=== PATIENT | female | born 1985 | race African-American/Black ===

== ENCOUNTER 2020-10-19 11:04 | Emergency (ER) | payer MEDICAID, OTHER ==
[2020-10-19 11:25] VITALS: BP 116/70
--- NOTE | 2020-10-19 11:59 | Event Note ---
ED Screening Note Date of service: 10/19/20 Time: 11:58 ED Screening Note: 35-year-old female patient presents to the emergency department with complaints of painful vaginal bleeding starting 2 days ago. Patient states the pain is localized to the left lower abdomen. Patient has never experienced vaginal bleeding with prior full-term pregnancies. Last menstrual cycle was in July. She was evaluated by her contracts intern yesterday and blood work was performed. She has not had an ultrasound. General: Awake, appropriately interactive, no acute distress. Neck: Supple. Full range of motion intact. Cardiovascular: Normal peripheral perfusion. Pulmonary: No respiratory distress. Patient is speaking normally without use of accessory muscles. Abdomen: Left lower quadrant tenderness. Skin: No apparent rashes or lesions. Neurological: No facial asymmetry. Speech is clear. Follows commands. Patient is alert and oriented. Musculoskeletal: Moves all four extremities spontaneously with normal range of motion. Psych: Cooperative. Appropriate mood and affect. I have greeted and performed a focused rapid initial assessment of this patient. A comprehensive ED assessment and evaluation of the patient, analysis of all test results, and completion of the medical decision-making process will be conducted by additional ED providers. This initial assessment/diagnostic orders/clinical plan/treatment(s) is/are subject to change based on patients health status, clinical progression and re-assessment. Further treatment and workup at subsequent clinical provider's discretion. Patient/guardian urged not to elope from the ED as their condition may be serious if not clinically assessed and managed.
[2020-10-19 12:58] LABS: Basophils # (Auto) 0.1 K/mm3 (0.0-0.1); Basophils % (Auto) 0.7 % (0.0-1.8); Eosinophils # (Auto) 0.1 K/mm3 (0.0-0.4); Eosinophils % (Auto) 1.1 % (0.0-4.3); Hemoglobin 13.6 gm/dl (10.1-14.3); Lymphocytes # (Auto) 1.6 K/mm3 (1.2-5.4); Lymphocytes % (Auto) 21.8 % (13.4-35.0); Mean Corpuscular HGB Conc 34 % (30-34); Mean Corpuscular Volume 92 fl (79-97); Monocytes # (Auto) 0.4 K/mm3 (0.0-0.8); Platelet Count 257 K/mm3 (140-440); Red Blood Count 4.33 M/mm3 (3.65-5.03); Red Cell Distribution Width 14.2 % (13.2-15.2)
--- NOTE | 2020-10-19 16:49 | Emergency Department Report ---
ED HPI - General Chief complaint: Vaginal Bleeding Stated complaint: VAG BLEED (PREG) Time Seen by Provider: 10/19/20 16:40 Source: patient Mode of arrival: Ambulatory Limitations: No Limitations - History of Present Illness Initial comments: 35-year-old female with no significant past history presents to the ER today with complaints of being and vaginal bleeding. Patient states that her vaginal bleeding started 2 days ago but got worse today. Patient states that she is currently about 6 weeks based on her last menstrual cycle which was August 10, and she also had an ultrasound about a week ago at her GOLD LAYER's office. She states that when she had ultrasound a week ago which showed a gestational sac but otherwise nothing else was seen. She states that she did see her GOLD LAYER yesterday, and she did mention the bleeding to her GOLD LAYER but she states that they did do blood work and he recommended that she go home and rest but she did not have a repeat ultrasound. She states that the bleeding got worse today with passage of clots and she has change about 5-6 pads today and so she came to the ER. She reports associated abdominal cramping mainly in the left lower quadrant. She reports urinary frequency but no other UTI symptoms. She is G3, P2 Ab0 Complaint: abdominal pain, vaginal bleeding, other (about 6 weeks ) -: days(s) (2) - Related Data Previous Rx's Medication Instructions Recorded Last Taken Type HYDROcodone/APAP 5-325 [[place] 1 each PO Q4HR PRN #12 tablet 10/19/20 Unknown Rx 5/325] Ibuprofen [Motrin] 600 mg PO Q8H PRN #30 tablet 10/19/20 Unknown Rx Allergies Allergy/AdvReac Type Severity Reaction Status Date / Time No Known Allergies Allergy Unverified 10/19/20 11:22 ED Review of Systems ROS: Stated complaint: VAG BLEED (PREG) Other details as noted in HPI Comment: All other systems reviewed and negative Constitutional: denies: chills, fever Eyes: denies: eye pain, eye discharge, vision change ENT: denies: ear pain, throat pain, dental pain, hearing loss, epistaxis, congestion Respiratory: denies: cough, orthopnea, shortness of breath, SOB with exertion, SOB at rest, wheezing Cardiovascular: denies: chest pain, palpitations, edema, syncope, paroxysmal nocturnal dyspnea Gastrointestinal: abdominal pain. denies: nausea, diarrhea, constipation, hematemesis, melena, hematochezia Genitourinary: frequency, other (Abnormal vaginal bleeding). denies: urgency, dysuria, discharge Musculoskeletal: denies: back pain, joint swelling, arthralgia, myalgia Skin: denies: rash, lesions, change in color, change in hair/nails, pruritus Neurological: denies: headache, weakness, numbness, paresthesias, confusion, abnormal gait, vertigo Psychiatric: denies: anxiety, depression, auditory hallucinations, visual hallucinations, homicidal thoughts, suicidal thoughts Hematological/Lymphatic: denies: easy bleeding, easy bruising, swollen glands ED Past Medical Hx - Past Medical History Previous Medical History?: No - Surgical History Past Surgical History?: No - Medications Home Medications: Home Medications Medication Instructions Recorded Confirmed Last Taken Type HYDROcodone/APAP 5-325 [[place] 1 each PO Q4HR PRN #12 tablet 10/19/20 Unknown Rx 5/325] Ibuprofen [Motrin] 600 mg PO Q8H PRN #30 tablet 10/19/20 Unknown Rx ED Physical Exam - General Limitations: No Limitations General appearance: alert, in no apparent distress, anxious - Head Head exam: Present: atraumatic, normocephalic, normal inspection - Eye Eye exam: Present: normal appearance, PERRL, EOMI Pupils: Present: normal accommodation - ENT ENT exam: Present: normal exam, mucous membranes moist - Neck Neck exam: Present: normal inspection, full ROM - Respiratory Respiratory exam: Present: normal lung sounds bilaterally. Absent: respiratory distress, wheezes, rales, rhonchi - Cardiovascular Cardiovascular Exam: Present: regular rate, normal rhythm, normal heart sounds - GI/Abdominal GI/Abdominal exam: Present: soft, tenderness (Mild left lower quadrant abdominal tenderness). Absent: distended, guarding, rebound, rigid - Neurological Exam Neurological exam: Present: alert, oriented X3, CN II-XII intact, normal gait - Psychiatric Psychiatric exam: Present: normal affect, normal mood - Skin Skin exam: Present: intact ED Course Vital Signs 10/19/20 11:23 Temperature 98.9 F Pulse Rate 68 Respiratory 17 Rate Blood Pressure 116/70 [Right] O2 Sat by Pulse 100 Oximetry ED Medical Decision Making - Lab Data Result diagrams: 10/19/20 12:27 10/19/20 20:06 - Radiology Data Radiology results: report reviewed Patient: JOSÉ MIGUEL ROSEN MR#: [id number] [birth year] : 1985 Acct:[id number] Age/Sex: 35 / F ADM Date: 10/19/20 Loc: ED Attending Dr: Ordering Physician: JOÃO STACY Date of Service: 10/19/20 Procedure(s): US OB transvaginal Accession Number(s): [id number] cc: JOÃO STACY OB ultrasound first trimester INDICATION: Ultrasound in physician's office showed an empty gestational sac, vaginal bleeding FINDINGS: There is an oval collection of fluid in the lower uterine segment no pole or yolk sac is seen within this. This could represent early gestational sac in the lower uterine segment. There is some thickening of the endometrium around the site. In the region of the right cornu there is a 3.5 x 2.4 x 2.9 cm irregular. Stru cture with a central cystic area that measures 1.3 cm. No pole or yolk sac is seen within the structure. This structure is hypovascular. There are several small fibroids identified within the uterus The right ovary measures 4.3 cm and the left ovary measures 3.9 cm. No adnexal masses are seen. IMPRESSION: 1. The hypervascular structure in the right cornu measuring up to 3.5 cm with a cystic central portion is not specific. It is possible this could represent a hypervascular fibroid in the cornu with a necrotic central portion. The possibility that this could represent a cornual ectopic is considered as well. 2. Oval collection of fluid in the lower uterine segment may represent an abnormal gestational sac and represent an in progress. IMPORTANT FINDING: Time of Communication ([place] ADMIN/CDT): 1750 Licensed Practitioner Receiving Report: Sherly 3. Close clinical follow-up is recommended. Follow-up ultrasound should be obtained as clinically warranted. Correlation with serial serum beta hCG levels is recommended. Signer Name: Abel Alberts MD Signed: 10/19/2020 6:57 PM Workstation Name: [id number] Transcribed By: Dictated By: Abel Alberts MD Electronically Authenticated By: Abel Alberts MD Signed Date/Time: 10/19/201856 DD/ 37 TD/TT: - Medical Decision Making Labs reviewed --CBC shows a normal white count and normal H&H; CMP normal; Quant 4340 OB US shows -- The hypervascular structure in the right cornu measuring up to 3.5 cm with a cystic central portion is not specific. It is possible this could represent a hypervascular fibroid in the cornu with a necrotic central portion. The possibility that this could represent a cornual ectopic is considered as well. 2. Oval collection of fluid in the lower uterine segment ma y represent an abnormal gestational sac and represent an in progress. 3. Close clinical follow-up is recommended. Follow-up ultrasound should be obtained as clinically warranted. Correlation with serial serum beta hCG levels is recommended. Patient currently resting comfortably on bed. She is not in any distress. She is not toxic or ill appearing. She reports mild intermittent lower abd cramping mainly left side but no worsening bleeding. Repeat Abd exam show soft abd with mild ttp LLQ but no guarding, rebound, rigidity or distension. Discussed lab/US results with patient and informed her that I will need to consult OBGYN for plan of action given results of US. 2008: Discussed case with Dr Ibrahim, chief deputy coroner OBGYN for [facility], she recommend initiating methotrexate 50mg/m2 and having patient f/u with her OB at [facility] tomorrow but she also recommend the patient return here to the ER in 4 days for repeat CBC and quant and then return on day 7 for repeat CBC, quant and CMP and possibly another methotrexate injection if her quant from day 4 today 7 did not drop by 15%. Discussed my plan for discussion with Dr. Ibrahim with patient. She expresses understanding of instructions and agree with plan. Patient be given a copy of her ultrasound results as well as her lab work to follow-up with her GOLD LAYER tomorrow. Patient stable at time of discharge. Critical care attestation.: If time is entered above; I have spent that time in minutes in the direct care of this critically ill patient, excluding procedure time. ED Disposition Clinical Impression: Incomplete miscarriage, Abnormal obstetric ultrasound scan, Adnexal mass Disposition: TO HOME OR SELFCARE Is pt being admited?: No Does the pt Need Aspirin: No Condition: Stable Instructions: Incomplete Miscarriage Additional Instructions: Take the hydrocodone and the Motrin as prescribed to help with pain. Is important that you follow-up with your GOLD LAYER at [facility] tomorrow. Per discussion with Dr. Ibrahim (OBGYN chief deputy coroner with [facility]) --he will need to return here on day 4 (10/22/20) for repeat CBC and quant hCG and on day 7 (10/25/20) for repeat CBC, CMP, and quant hCG and possibly another methotrexate injection. I would recommend talking with the GOLD LAYER tomorrow and see if they can do these follow-up test in the office and to give your methotrexate injection if needed but if not return to the ER as instructed above. Return sooner to the ER if your symptoms worsens in any way. Prescriptions: Ibuprofen [Motrin] 600 mg PO Q8H PRN #30 tablet PRN Reason: Pain HYDROcodone/APAP 5-325 [[place] 5/325] 1 each PO Q4HR PRN #12 tablet PRN Reason: Pain Referrals: THANH GALINDO DO [Staff Physician] - 10/20/20 (tomorrow ) Forms: Work/School Release Form(ED), Methotrexate D/C Instructions Time of Disposition: 20:43 Print Language: YORUBA
[2020-10-19 17:43] LABS: Bilirubin,Urine NEG (Negative); Blood,Urine LG (Negative); Color,Urine Straw (Yellow); Mucus,Urine FEW /HPF; Protein,Urine <15 mg/dL mg/dL (Negative); Urobilinogen,Urine < 2.0 mg/dL (<2.0)
--- NOTE | 2020-10-19 19:01 | Ultrasound Report ---
OB ultrasound first trimester INDICATION: Ultrasound in physician's office showed an empty gestational sac, vaginal bleeding FINDINGS: There is an oval collection of fluid in the lower uterine segment no pole or yolk sac is seen w ithin this. This could represent early gestational sac in the lower uterine segment. There is some th ickening of the endometrium around the site. In the region of the right cornu there is a 3.5 x 2.4 x 2.9 cm irregular. Structure with a central cy stic area that measures 1.3 cm. No pole or yolk sac is seen within the structure. This structur e is hypovascular. There are several small fibroids identified within the uterus The right ovary measures 4.3 cm and the left ovary measures 3.9 cm. No adnexal masses are seen. IMPRESSION: 1. The hypervascular structure in the right cornu measuring up to 3.5 cm with a cystic central porti on is not specific. It is possible this could represent a hypervascular fibroid in the cornu with a n ecrotic central portion. The possibility that this could represent a cornual ectopic is con sidered as well. 2. Oval collection of fluid in the lower uterine segment may represent an abnormal gestational sac a nd represent an in progress. IMPORTANT FINDING: Time of Communication (CHIEF OF ANESTHESIOLOGY/CDT): 1750 Licensed Practitioner Receiving Report: Sherly 3. Close clinical follow-up is recommended. Follow-up ultrasound should be obtained as clinically war ranted. Correlation with serial serum beta hCG levels is recommended. Signer Name: Abel Alberts MD Signed: 10/19/2020 6:57 PM Workstation Name: [id number]
[2020-10-19 20:23] LABS: Alanine Aminotransferase 26 units/L (7-56); Albumin 4.4 g/dL (3.9-5); Blood Urea Nitrogen 8 mg/dL (7-17); Calcium 8.8 mg/dL (8.4-10.2); Hemolysis Index 21
[2020-10-19] MEDS ORDERED: ACETAMINOPHEN 500 MG TAB PO ONE (20:24)
[2020-10-19 20:27] LABS: BUN/Creatinine Ratio 20
== END 2020-10-19 22:15 | disposition home or self-care (01) ==
LOC: ED 11:04
DX: O03.4 Incomplete spontaneous abortion without complication (principal); O34.81 Maternal care for other abnormalities of pelvic organs, first trimester; O28.3 Abnormal ultrasonic finding on antenatal screening of mother; Z3A.01 Less than 8 weeks gestation of pregnancy; Z79.1 Long term (current) use of non-steroidal anti-inflammatories (NSAID); Z79.899 Other long term (current) drug therapy
CPT/HCPCS: 36415; 76801; 76817; 80053; 81001; 84702; 85025; 86900; 86901; 96372; 99284; J9260